=== PATIENT | female | born 1945 | race Caucasian/White ===

== ENCOUNTER 2018-02-13 10:45 | Emergency (ER) | payer OTHER ==
[~2018-02-13] VITALS: Ht 160 cm; Wt 76.2 kg
[2018-02-13 10:45] VITALS: BP_SYST 174
[~2018-02-13 10:45] MED LIST: LISI30TA36 PO; SIMV10TA6 PO
[2018-02-13] MEDS ORDERED: DEXAMETHASONE SOD PHOSPHATE 10 MG/ML VIAL IM ONE (11:00)
[2018-02-13] MEDS ORDERED: NACL 0.9% 1,000 ML IV ONE (12:15)
[2018-02-13 12:42] LABS: BASOPHILS % (AUTO) 0.3 % (0.0-2.0); EOSINOPHILS # (AUTO) 0.2 K/uL (0.0-0.4); EOSINOPHILS % (AUTO) 2.1 % (0.0-4.0); HEMATOCRIT 42.4 % (36-48); HEMOGLOBIN 14.1 g/dL (12.0-16.0); LYMPHOCYTES # (AUTO) 1.5 K/uL (1.0-5.5); LYMPHOCYTES % (AUTO) 18.7 % (20.5-51.5); MEAN CORPUSCULAR HEMOGLOBIN 29 pg (27-31); MEAN CORPUSCULAR HGB CONC 33 % (32-36); MEAN CORPUSCULAR VOLUME 88 fL (79.0-98.0); MONOCYTES # (AUTO) 0.6 K/uL (0.0-1.0); MONOCYTES % (AUTO) 7.8 % (1.7-9.3); NEUTROPHILS # (AUTO) 5.5 K/uL (1.8-7.7); NEUTROPHILS % (AUTO) 71.1 % (40.0-70.0); PLATELET COUNT (AUTO) 270 K/uL (130-430); RED BLOOD CELL COUNT(AUTO) 4.82 MIL/uL (4.2-6.2); RED CELL DISTRIBUTION WIDTH 13.1 % (9.0-15.0); WHITE BLOOD COUNT (AUTO) 7.8 K/uL (4.8-10.8)
[2018-02-13 12:54] LABS: ANION GAP 8 (5-15); CALCIUM 9.8 mg/dL (8.4-11.0); CHLORIDE 100 mmol/L (98-107); CREATININE 1.39 mg/dL (0.55-1.30); GLUCOSE 126 mg/dL (70-99); POTASSIUM 3.4 mmol/L (3.5-5.1); SODIUM SERUM 134 mmol/L (136-145); UREA NITROGEN, BLOOD 29 mg/dL (8-21)
[2018-02-13 12:59] LABS: PROTHROMBIN TIME 9.9 SECS (9.5-12.5)
[2018-02-13] MEDS ORDERED: METO25TA6 PO (13:25)
[2018-02-13] MEDS ORDERED: BIOT25008 PO (13:25)
[2018-02-13] MEDS ORDERED: AMLO5TAB4 PO (13:25)
[2018-02-13] MEDS ORDERED: MAGN400T10 PO (13:25)
[2018-02-13] MEDS ORDERED: HYG25 PO (13:25)
[2018-02-13] MEDS ORDERED: TYC3 PO (13:25)
[2018-02-13] MEDS ORDERED: CALC-1085 PO (13:25)
[2018-02-13] MEDS ORDERED: ASPI-1153 PO (13:25)
[2018-02-13] MEDS ORDERED: CHOL100062 PO (13:25)
[2018-02-13] MEDS ORDERED: GLUC100017 PO (13:25)
[2018-02-13] MEDS ORDERED: UBID200C32 PO (13:25)
[2018-02-13] MEDS ORDERED: ROSU10TA PO (13:25)
[2018-02-13] MEDS ORDERED: AMPICILLIN SODIUM/SULBACTAM NA 3 GM in NS 100 ML IV ONE (13:45)
[2018-02-13] MEDS ORDERED: AMPICILLIN SODIUM/SULBACTAM NA 3 GM VIAL ONE (13:46)
[2018-02-13 15:15] VITALS: BP_SYST 130
== END 2018-02-13 15:15 | disposition home or self-care (01) ==
LOC: SED 10:45
DX: J05.10 Acute epiglottitis without obstruction (principal); I10 Essential (primary) hypertension; E78.00 Pure hypercholesterolemia, unspecified
CPT/HCPCS: 36415; 70360; 70490; 71046; 80048; 83605; 83880; 84484; 85025; 85610; 85730; 87040; 96365; 96372; 99285; J0295; J1100; J7030